=== PATIENT | female | born 1935 | race Caucasian/White ===

== ENCOUNTER 2018-08-23 07:33 | Observation (INO) | payer MEDICARE, OTHER ==
[2018-08-23] MEDS: morphine 4 MG/ML VIAL IV (08:00)
[2018-08-23] MEDS: ONDANSETRON 4 MG INJ IV (08:00)
[2018-08-23] MEDS: SOD CHLORIDE 0.9% 1,000 ML IV (08:00)
[2018-08-23 08:04] LABS: ADD MAN DIFF? NO
[2018-08-23 08:06] LABS: BASOPHIL # 0.1 10^3/ul (0.0-0.1); BASOPHILS % 0.7 % (0.0-2.0); EOSINOPHILS # 0.1 10^3/ul (0.0-0.5); EOSINOPHILS % 1.1 % (0.0-7.0); HEMATOCRIT 39.9 % (37.0-47.0); HEMOGLOBIN 12.3 g/dl (12.0-16.0); LYMPHOCYTES % 15.7 % (15.0-51.0); MEAN CORPUSCULAR HEMOGLOBIN 24.8 pg (29.0-33.0); MEAN CORPUSCULAR HGB CONC 30.8 g/dl (32.0-37.0); MEAN CORPUSCULAR VOLUME 80.6 fl (82.0-101.0); MEAN PLATELET VOLUME 10.4 fl (7.4-10.4); MONOCYTE # 0.7 10^3/ul (0.3-0.9); MONOCYTES % 5.4 % (0.0-11.0); NEUTROPHIL # 9.7 10^3/ul (1.6-7.5); NEUTROPHILS % 76.4 % (39.0-77.0); PLATELET COUNT 360 10^3/UL (140-415); RED BLOOD COUNT 4.95 10^6/ul (4.20-5.40); RED CELL DISTRIBUTION WIDTH 14.6 % (11.5-14.5)
[2018-08-23 08:06] LABS: WHITE BLOOD COUNT 12.7 10^3/ul (4.8-10.8)
[2018-08-23] MEDS: MECLIZINE 12.5 MG TAB PO ×5 (08:11→22:55)
[2018-08-23 08:25] LABS: ALANINE AMINOTRANSFERASE 18 IU/L (13-69); ALBUMIN 4.1 g/dl (3.3-4.9); ALBUMIN/GLOBULIN RATIO 1.32; ALKALINE PHOSPHATASE 115 IU/L (42-121); ANION GAP 13 (5-13); ASPARTATE AMINO TRANSFERASE 19 IU/L (15-46); BILIRUBIN,INDIRECT 0.8 mg/dl (0-1.1); BILIRUBIN,TOTAL 0.8 mg/dl (0.2-1.3); BLOOD UREA NITROGEN 15 mg/dl (7-20); CALCIUM 9.2 mg/dl (8.4-10.2); CARBON DIOXIDE 27 mmol/L (21-31); CHLORIDE 102 mmol/L (97-110); CREATININE 0.85 mg/dl (0.44-1.00); GLUCOSE 167 mg/dl (70-220); LIPASE 55 U/L (23-300); POTASSIUM 4.6 mmol/L (3.5-5.1); SODIUM 142 mmol/L (135-144); TOTAL PROTEIN 7.2 g/dl (6.1-8.1)
[2018-08-23 08:26] LABS: INR 1.06; PROTIME 13.9 Sec (11.9-14.9); PT RATIO 1.1
[2018-08-23 08:27] LABS: PARTIAL THROMBOPLASTIN TIME 29.2 Sec (23.0-35.0)
[2018-08-23 08:37] LABS: B-TYPE NATRIURETIC PEPTIDE 847 PG/ML (0-450); TROPONIN-I < 0.012 ng/ml (0.000-0.120)
[2018-08-23] MEDS: DIAZEPAM 5 MG/ML SYG IV (10:18)
[2018-08-23] MEDS ORDERED: NACL 0.9% 3 ML SYG IV (12:30)
[2018-08-23] MEDS ORDERED: ONDANSETRON 4 MG INJ IV ×2 (12:30)
[2018-08-23] MEDS ORDERED: ACETAMINOPHEN 325 MG TAB PO (12:30)
[2018-08-23 13:10] LABS: HEMOGLOBIN A1C 6.3 % (0-5.9)
[2018-08-23] MEDS ORDERED: GLUCAGON 1 MG INJ IM (13:30)
[2018-08-23] MEDS ORDERED: GLUCOSE GEL 15 GRAM TUBE PO ×2 (13:30)
[2018-08-23] MEDS ORDERED: GLUCOSE GEL 15 GRAM TUBE BUCCAL (13:30)
[2018-08-23] MEDS ORDERED: DEXTROSE 50% 50 ML SYRINGE IV ×2 (13:30)
[2018-08-23] MEDS: INSULIN ASPART [NOVOLOG] 3 ML PEN SC ×2 (18:00→22:49)
[2018-08-23] MEDS: MONTELUKAST 10 MG TAB PO (22:39)
[2018-08-23] MEDS: METOPROLOL 25 MG TAB PO (22:42)
[2018-08-23] MEDS: INSULIN GLARGINE [LANTus] (100 UNITS/ML) SYG SC (22:50)
[2018-08-24 06:28] LABS: ADD MAN DIFF? NO
[2018-08-24] MEDS: MECLIZINE 12.5 MG TAB PO ×2 (06:28→13:07)
[2018-08-24 06:33] LABS: WHITE BLOOD COUNT 10.4 10^3/ul (4.8-10.8)
[2018-08-24 06:33] LABS: BASOPHIL # 0.1 10^3/ul (0.0-0.1); BASOPHILS % 0.8 % (0.0-2.0); EOSINOPHILS # 0.5 10^3/ul (0.0-0.5); HEMATOCRIT 38.1 % (37.0-47.0); HEMOGLOBIN 11.9 g/dl (12.0-16.0); LYMPHOCYTES # 2.8 10^3/ul (0.8-2.9); LYMPHOCYTES % 26.4 % (15.0-51.0); MEAN CORPUSCULAR HEMOGLOBIN 24.8 pg (29.0-33.0); MEAN CORPUSCULAR HGB CONC 31.2 g/dl (32.0-37.0); MEAN CORPUSCULAR VOLUME 79.5 fl (82.0-101.0); MEAN PLATELET VOLUME 10.5 fl (7.4-10.4); MONOCYTE # 0.9 10^3/ul (0.3-0.9); MONOCYTES % 8.5 % (0.0-11.0); NEUTROPHIL # 6.1 10^3/ul (1.6-7.5); NEUTROPHILS % 58.6 % (39.0-77.0); PLATELET COUNT 381 10^3/UL (140-415); RED BLOOD COUNT 4.79 10^6/ul (4.20-5.40)
[2018-08-24 06:56] LABS: CHOL/HDL RATIO 6.8 RATIO; CHOLESTEROL 233 mg/dl (100-200); HDL CHOLESTEROL 34 mg/dl (33-92); LDL CHOLESTEROL,CALCULATED 150 mg/dl; MAGNESIUM 2.1 mg/dl (1.7-2.5); TRIGLYCERIDES 244 mg/dl (0-149)
[2018-08-24 06:56] LABS: PHOSPHORUS 4.3 mg/dl (2.5-4.9)
[2018-08-24 07:00] LABS: ALANINE AMINOTRANSFERASE 20 IU/L (13-69); ALBUMIN 3.5 g/dl (3.3-4.9); ALKALINE PHOSPHATASE 87 IU/L (42-121); ANION GAP 9 (5-13); ASPARTATE AMINO TRANSFERASE 14 IU/L (15-46); BILIRUBIN,INDIRECT 0.6 mg/dl (0-1.1); BILIRUBIN,TOTAL 0.6 mg/dl (0.2-1.3); BLOOD UREA NITROGEN 16 mg/dl (7-20); CALCIUM 9.1 mg/dl (8.4-10.2); CARBON DIOXIDE 31 mmol/L (21-31); CHLORIDE 105 mmol/L (97-110); GLUCOSE 131 mg/dl (70-220); POTASSIUM 4.6 mmol/L (3.5-5.1); SODIUM 145 mmol/L (135-144)
[2018-08-24 07:04] LABS: CK-MB 0.67 ng/ml (0.0-2.4); TROPONIN-I 0.017 ng/ml (0.000-0.120)
[2018-08-24 07:05] LABS: CK INDEX 1.5; CREATINE KINASE 45 IU/L (23-200)
[2018-08-24] MEDS: INSULIN ASPART [NOVOLOG] 3 ML PEN SC ×2 (07:50→11:50)
[2018-08-24 09:16] LABS: ADD UMIC YES; UR ASCORBIC ACID NEGATIVE (NEGATIVE); UR BACTERIA FEW /HPF (NONE SEEN); UR BILIRUBIN (Dip) NEGATIVE (NEGATIVE); UR BLOOD (Dip) NEGATIVE (NEGATIVE); UR CLARITY CLOUDY (CLEAR); UR COLOR YELLOW (YELLOW); UR GLUCOSE (Dip) NEGATIVE (NEGATIVE); UR KETONES (Dip) NEGATIVE (NEGATIVE); UR LEUKOCYTE ESTERASE (Dip) 3+ Leu/ul (NEGATIVE); UR NITRITE (Dip) POSITIVE (NEGATIVE); UR RBC 4 /HPF (0-5); UR SPECIFIC GRAVITY (Dip) 1.012 (1.003-1.030); UR SQUAMOUS EPITHELIAL CELL FEW /HPF (FEW); UR TOTAL PROTEIN (Dip) NEGATIVE (NEGATIVE); UR UROBILINOGEN (Dip) NEGATIVE (NEGATIVE); UR WBC 71 /HPF (0-5)
[2018-08-24] MEDS: GABAPENTIN 300 MG CAP PO (09:24)
[2018-08-24] MEDS: EZETIMIBE 10 MG TAB PO (09:24)
[2018-08-24] MEDS: METOPROLOL 25 MG TAB PO (09:24)
[2018-08-24] MEDS: AMLODIPINE 10 MG TAB PO (09:25)
[2018-08-24 09:29] LABS: AMPHETAMINE/METHAMPHETAMINE Negative (NEGATIVE); BARBITURATES Negative (NEGATIVE); BENZODIAZEPINES Negative (NEGATIVE); CANNABINOIDS Negative (NEGATIVE); COCAINE Negative (NEGATIVE); OPIATES Positive (NEGATIVE)
[2018-08-24] MEDS: ENOXAPARIN 40 MG/0.4 ML SYG SC (09:31)
== END 2018-08-24 15:43 | disposition home health service (06) ==
LOC: E/R 07:33 → TEL 12:09
DX: R42 Dizziness and giddiness (principal); I10 Essential (primary) hypertension; E78.5 Hyperlipidemia, unspecified; E11.9 Type 2 diabetes mellitus without complications; D72.829 Elevated white blood cell count, unspecified
CPT/HCPCS: 70450; 70551; 71045; 80053; 80061; 80307; 81001; 82550; 82553; 82962; 83036; 83690; 83735; 83880; 84100; 84484; 85025; 85610; 85730; 87086; 93005; 93306; 97161; G0378